=== PATIENT | female | born 1950 | race Hispanic/Latino ===

== ENCOUNTER 2020-06-11 09:53 | Emergency (ER) | payer OTHER ==
[2020-06-11] MEDS ORDERED: CEFTRIAXONE SODIUM 1 GM ONE (13:22)
[2020-06-11] MEDS ORDERED: DEXAMETHASONE SOD PHOSPHATE 4 MG/ML 1ML VIAL ONE (13:22)
== END 2020-06-11 14:04 | disposition home or self-care (01) ==
LOC: EDH 09:53
DX: J02.9 Acute pharyngitis, unspecified (principal); I10 Essential (primary) hypertension; E78.00 Pure hypercholesterolemia, unspecified
CPT/HCPCS: 71045; 87880; 93005; 96372 ×2; 99285; J0696; J1100

== ENCOUNTER 2023-06-10 01:24 | Emergency (ER) | payer OTHER ==
[~2023-06-10] VITALS: Ht 162.6 cm; Wt 78.9 kg
[2023-06-10 01:53] LABS: APPEARANCE,URINE CLEAR (CLEAR); BILIRUBIN,URINE NEGATIVE (NEGATIVE); COLOR,URINE LIGHT-YELLOW (YELLOW); GLUCOSE, URINE (UA) NEGATIVE (NEGATIVE); KETONES,URINE NEGATIVE (NEGATIVE); LEUKOCYTE ESTERASE ,URINE 250 Leu/uL (NEGATIVE); NITRATE,URINE 2+ (NEGATIVE); OCCULT BLOOD,URINE SMALL (NEGATIVE); PH,URINE 6.5 (5.0-8.0); PROTEIN,URINE NEGATIVE (NEGATIVE); UROBILINOGEN,URINE 0.2 mg/dL (0.2-1.0)
[2023-06-10 01:54] LABS: ADD UA MICROSCOPIC YES
[2023-06-10 01:59] LABS: BACTERIA,URINE RARE /HPF (None Seen); SQUAMOUS EPITHELIAL CELL,UR RARE /HPF (0-2); UNCLASSIFIED CRYSTAL 4 /HPF (None Seen)
[2023-06-10] MEDS: 0.9%NACL 1000ML 1,000 ML IV ONE (02:26)
[2023-06-10] MEDS: MORPHINE 2 MG SYG IVP ONE (02:26)
[2023-06-10 02:31] LABS: BASOPHILS # (AUTO) 0.01 K/uL (0.00-0.20); BASOPHILS % (AUTO) 0.2 % (0.0-5.0); EOSINOPHILS % (AUTO) 2.1 % (0.0-8.0); HEMATOCRIT 29.6 % (36-48); IMMATURE GRANULOCYTE ABSOLUTE 0.01 K/uL (0-1); LYMPHOCYTES # (AUTO) 1.7 K/uL (1.0-4.8); LYMPHOCYTES % (AUTO) 35.1 % (21.0-51.0); MEAN CORPUSCULAR HEMOGLOBIN 30.9 pg (27.0-33.0); MEAN CORPUSCULAR HGB CONC 34.8 g/dL (32.0-36.0); MEAN CORPUSCULAR VOLUME 88.9 fL (79-99); MONOCYTES # (AUTO) 0.5 K/uL (0.1-1.0); MONOCYTES % (AUTO) 10.5 % (3.0-13.0); NEUTROPHILS # (AUTO) 2.5 K/uL (1.8-7.7); NEUTROPHILS % (AUTO) 51.9 % (40.0-77.0); PLATELET COUNT (AUTO) 249 K/uL (130-400); RED BLOOD CELL COUNT(AUTO) 3.33 MIL/uL (4.00-5.50); RED CELL DISTRIBUTION WIDTH 12.8 % (11.0-15.5); WHITE BLOOD COUNT (AUTO) 4.9 K/uL (4.8-10.8)
[2023-06-10 02:58] LABS: CREATININE 0.6 mg/dL (0.5-1.5); POTASSIUM 3.5 mmol/L (3.5-5.1)
[2023-06-10 03:02] LABS: ALBUMIN 3.7 g/dL (3.5-5.0); BILIRUBIN,TOTAL 0.4 mg/dL (0.2-1.0); TOTAL PROTEIN, SERUM 6.9 g/dL (6.0-8.3)
[2023-06-10] MEDS ORDERED: IBUP-1493 PO (05:18)
[2023-06-10] MEDS ORDERED: CEFU500T67 PO (05:18)
[2023-06-10] MEDS: CEFTRIAXONE 2GM VIAL IVPB ONE (07:41)
[2023-06-10 07:42] VITALS: BP 133/82; PULSE 68; RESP 14; O2SAT 98
[2023-06-10] MEDS: CEFTRIAXONE 2GM VIAL ONE (07:42)
== END 2023-06-10 08:30 | disposition home or self-care (01) ==
LOC: EDH 01:24
DX: N39.0 Urinary tract infection, site not specified (principal); R10.31 Right lower quadrant pain; E78.00 Pure hypercholesterolemia, unspecified; I10 Essential (primary) hypertension
CPT/HCPCS: 99285; 74177; 96361; 96365; 76705; 96375; 82150; 80053; 83690; 85025; 87088; 81001; 36415; J2270; J7030; J0696

== ENCOUNTER 2023-06-29 00:56 | Emergency (ER) | payer OTHER ==
[~2023-06-29] VITALS: Ht 154.9 cm; Wt 77.1 kg
[~2023-06-29 00:56] MED LIST: CEFU500T67 PO; IBUP-1493 PO
[2023-06-29 00:57] VITALS: BP 138/84; PULSE 74; RESP 20
[2023-06-29 01:27] LABS: APPEARANCE,URINE CLEAR (CLEAR); BILIRUBIN,URINE NEGATIVE (NEGATIVE); COLOR,URINE COLORLESS (YELLOW); GLUCOSE, URINE (UA) NEGATIVE (NEGATIVE); KETONES,URINE NEGATIVE (NEGATIVE); LEUKOCYTE ESTERASE ,URINE 500 Leu/uL (NEGATIVE); NITRATE,URINE NEGATIVE (NEGATIVE); PH,URINE 6.5 (5.0-8.0); PROTEIN,URINE NEGATIVE (NEGATIVE); UROBILINOGEN,URINE 0.2 mg/dL (0.2-1.0)
[2023-06-29 01:32] LABS: ADD UA MICROSCOPIC YES
[2023-06-29 01:37] LABS: BACTERIA,URINE RARE /HPF (None Seen); NON-SQUAMOUS EPITHELIAL CELL <1 /HPF (0-2); SQUAMOUS EPITHELIAL CELL,UR RARE /HPF (0-2)
[2023-06-29] MEDS ORDERED: CEPH500C2 PO (02:38)
[2023-06-29] MEDS ORDERED: ACET-66 PO (02:38)
[2023-06-29] MEDS ORDERED: IBUP-1493 PO (02:38)
[2023-06-29] MEDS ORDERED: PHEN-847 PO (02:38)
[2023-06-29] MEDS: FAMOTIDINE 20MG TAB PO ONE (03:19)
[2023-06-29] MEDS: KETOROLAC 30MG VIAL (30MG/ML) IM ONE (03:19)
[2023-06-29] MEDS: PHENAZOPYRIDINE HCL 200 MG TABLET PO ONE (03:19)
[2023-06-29] MEDS: CEFTRIAXONE 1G VIAL IM ONE (03:19)
[2023-07-03] MEDS ORDERED: AMIT10TA7 PO (20:46)
== END 2023-06-29 03:26 | disposition home or self-care (01) ==
LOC: EDH 00:56
DX: N39.0 Urinary tract infection, site not specified (principal); I10 Essential (primary) hypertension; M19.90 Unspecified osteoarthritis, unspecified site
CPT/HCPCS: 99284; 87088; 81001; 96372 ×2; J0696; J1885

== ENCOUNTER 2023-06-30 09:47 | Emergency (ER) | payer OTHER ==
[~2023-06-30] VITALS: Ht 154.9 cm; Wt 77.1 kg
[~2023-06-30 09:47] MED LIST changes: +ACET-66 PO; +CEPH500C2 PO; +PHEN-847 PO
[2023-06-30 10:30] LABS: BASOPHILS # (AUTO) 0.02 K/uL (0.00-0.20); BASOPHILS % (AUTO) 0.5 % (0.0-5.0); EOSINOPHILS # (AUTO) 0.02 K/uL (0.00-0.70); EOSINOPHILS % (AUTO) 0.5 % (0.0-8.0); HEMATOCRIT 32.9 % (36-48); IMMATURE GRANULOCYTE ABSOLUTE 0.01 K/uL (0-1); LYMPHOCYTES % (AUTO) 23.9 % (21.0-51.0); MEAN CORPUSCULAR HEMOGLOBIN 31.3 pg (27.0-33.0); MEAN CORPUSCULAR HGB CONC 34.7 g/dL (32.0-36.0); MEAN CORPUSCULAR VOLUME 90.4 fL (79-99); MONOCYTES # (AUTO) 0.3 K/uL (0.1-1.0); MONOCYTES % (AUTO) 7.5 % (3.0-13.0); NEUTROPHILS # (AUTO) 2.8 K/uL (1.8-7.7); NEUTROPHILS % (AUTO) 67.4 % (40.0-77.0); PLATELET COUNT (AUTO) 304 K/uL (130-400); RED BLOOD CELL COUNT(AUTO) 3.64 MIL/uL (4.00-5.50); RED CELL DISTRIBUTION WIDTH 12.4 % (11.0-15.5); WHITE BLOOD COUNT (AUTO) 4.2 K/uL (4.8-10.8)
[2023-06-30 10:38] LABS: CREATININE 0.5 mg/dL (0.5-1.5); POTASSIUM 3.7 mmol/L (3.5-5.1)
[2023-06-30 10:43] LABS: ALBUMIN 4.1 g/dL (3.5-5.0); BILIRUBIN,TOTAL 0.5 mg/dL (0.2-1.0); TOTAL PROTEIN, SERUM 7.8 g/dL (6.0-8.3)
[2023-06-30 11:07] LABS: APPEARANCE,URINE CLEAR (CLEAR); BILIRUBIN,URINE NEGATIVE (NEGATIVE); COLOR,URINE DARK-YELLOW (YELLOW); GLUCOSE, URINE (UA) NEGATIVE (NEGATIVE); KETONES,URINE NEGATIVE (NEGATIVE); LEUKOCYTE ESTERASE ,URINE NEGATIVE Leu/uL (NEGATIVE); NITRATE,URINE NEGATIVE (NEGATIVE); OCCULT BLOOD,URINE NEGATIVE (NEGATIVE); PH,URINE 6.5 (5.0-8.0); PROTEIN,URINE NEGATIVE (NEGATIVE); UROBILINOGEN,URINE 0.2 mg/dL (0.2-1.0)
[2023-06-30 11:09] LABS: ADD UA MICROSCOPIC NO
[2023-06-30] MEDS: ACETAMINOPHEN 325 MG TAB PO ONE (11:31)
[2023-06-30 11:59] LABS: APPEARANCE,URINE CLEAR (CLEAR); BILIRUBIN,URINE NEGATIVE (NEGATIVE); COLOR,URINE YELLOW (YELLOW); GLUCOSE, URINE (UA) NEGATIVE (NEGATIVE); KETONES,URINE NEGATIVE (NEGATIVE); LEUKOCYTE ESTERASE ,URINE NEGATIVE Leu/uL (NEGATIVE); NITRATE,URINE NEGATIVE (NEGATIVE); OCCULT BLOOD,URINE NEGATIVE (NEGATIVE); PROTEIN,URINE NEGATIVE (NEGATIVE); UROBILINOGEN,URINE 0.2 mg/dL (0.2-1.0)
[2023-06-30 12:00] LABS: ADD UA MICROSCOPIC NO
[2023-06-30] MEDS ORDERED: ONDANSETRON 4MG INJ IVP PRN (13:30)
[2023-06-30] MEDS ORDERED: ACETAMINOPHEN WITH CODEINE 1 TAB TAB PO PRN (13:30)
[2023-06-30] MEDS: ACETAMINOPHEN WITH CODEINE 1 TAB TAB PO PRN (13:38)
[2023-06-30] MEDS: 0.9%NACL 1000ML 1,000 ML IV ONE (13:38)
[2023-06-30 15:42] VITALS: BP 125/70; PULSE 79; RESP 18; O2SAT 98
[2023-07-03] MEDS ORDERED: AMIT10TA7 PO (20:46)
== END 2023-06-30 15:44 | disposition home or self-care (01) ==
LOC: EDH 09:47
DX: E87.1 Hypo-osmolality and hyponatremia (principal); M19.90 Unspecified osteoarthritis, unspecified site; E78.00 Pure hypercholesterolemia, unspecified; I10 Essential (primary) hypertension
CPT/HCPCS: 99285; 96360; 96361; 80053; 85025; 81003; 36415; J7030

== ENCOUNTER 2023-07-28 22:38 | Observation (INO) | payer OTHER ==
[~2023-07-28 22:38] MED LIST changes: +AMIT10TA7 PO
[2023-07-28 23:18] LABS: BASOPHILS # (AUTO) 0.01 K/uL (0.00-0.20); BASOPHILS % (AUTO) 0.2 % (0.0-5.0); EOSINOPHILS # (AUTO) 0.03 K/uL (0.00-0.70); EOSINOPHILS % (AUTO) 0.6 % (0.0-8.0); IMMATURE GRANULOCYTE ABSOLUTE 0.01 K/uL (0-1); LYMPHOCYTES # (AUTO) 1.5 K/uL (1.0-4.8); LYMPHOCYTES % (AUTO) 28.1 % (21.0-51.0); MEAN CORPUSCULAR HGB CONC 36.3 g/dL (32.0-36.0); MONOCYTES # (AUTO) 0.5 K/uL (0.1-1.0); MONOCYTES % (AUTO) 8.9 % (3.0-13.0); NEUTROPHILS # (AUTO) 3.3 K/uL (1.8-7.7); PLATELET COUNT (AUTO) 317 K/uL (130-400); RED BLOOD CELL COUNT(AUTO) 3.41 MIL/uL (4.00-5.50); WHITE BLOOD COUNT (AUTO) 5.3 K/uL (4.8-10.8)
[2023-07-28] MEDS: ONDANSETRON 4MG INJ IVP ONE (23:22)
[2023-07-28] MEDS: 0.9%NACL 1000ML 1,000 ML IV ONE (23:22)
[2023-07-28 23:31] LABS: BILIRUBIN,TOTAL 0.8 mg/dL (0.2-1.0); CREATININE 0.4 mg/dL (0.5-1.0); POTASSIUM 3.8 mmol/L (3.5-5.1); TOTAL PROTEIN, SERUM 7.3 g/dL (6.0-8.3)
[2023-07-29] MEDS ORDERED: IOHEXOL 350 MG/ML 100ML INFUS..BTL IV ONE (00:13)
[2023-07-29] MEDS: 0.9%NACL 1000ML 1,000 ML IV ONE ×2 (00:22→02:20)
[2023-07-29 00:28] LABS: APPEARANCE,URINE CLEAR (CLEAR); BILIRUBIN,URINE NEGATIVE (NEGATIVE); COLOR,URINE COLORLESS (YELLOW); GLUCOSE, URINE (UA) NEGATIVE (NEGATIVE); KETONES,URINE NEGATIVE (NEGATIVE); LEUKOCYTE ESTERASE ,URINE 25 Leu/uL (NEGATIVE); NITRATE,URINE NEGATIVE (NEGATIVE); PH,URINE 6.5 (5.0-8.0); PROTEIN,URINE NEGATIVE (NEGATIVE); UROBILINOGEN,URINE 0.2 mg/dL (0.2-1.0)
[2023-07-29 00:38] LABS: ADD UA MICROSCOPIC YES
[2023-07-29 00:39] LABS: BACTERIA,URINE RARE /HPF (None Seen); MUCUS,URINE RARE LPF (None Seen); WBC,URINE 0-1 /HPF (0-1)
[2023-07-29] MEDS ORDERED: ACETAMINOPHEN 325 MG TAB PO PRN (02:00)
[2023-07-29] MEDS: 0.9%NACL 1000ML 1,000 ML IV SCH (02:18)
[2023-07-29] MEDS ORDERED: FLUT1BLS9 IH (08:16)
[2023-07-29] MEDS ORDERED: LOSA25TA41 PO (08:16)
[2023-07-29] MEDS ORDERED: BACL5TAB PO (08:16)
[2023-07-29] MEDS ORDERED: ACET-2079 PO (08:16)
[2023-07-29] MEDS ORDERED: GABA300C PO (08:16)
[2023-07-29] MEDS ORDERED: LIDO1ADH71 TP (08:16)
[2023-07-29] MEDS ORDERED: FERR-72 PO (08:16)
[2023-07-29] MEDS ORDERED: ALBU2.5V2 IH (08:18)
[2023-07-29] MEDS ORDERED: ALBU6.7H14 IH (08:18)
[2023-07-29] MEDS ORDERED: LIDOCAINE 4% ADH..PATCH TP PRN (11:30)
[2023-07-29] MEDS ORDERED: ALBUTEROL 0.083% 2.5 MG/3 ML INH IH PRN (11:30)
[2023-07-29 12:42] LABS: CREATININE 0.5 mg/dL (0.5-1.0); POTASSIUM 3.8 mmol/L (3.5-5.1)
[2023-07-29] MEDS: ACETAMINOPHEN WITH CODEINE 1 TAB TAB PO PRN (12:53)
[2023-07-29] MEDS: GABAPENTIN 300 MG CAPSULE PO SCH (14:00)
[2023-07-29] MEDS ORDERED: ONDA-104 PO (14:59)
[2023-07-29] MEDS ORDERED: IBUP-2077 PO (14:59)
[2023-07-29 15:01] VITALS: O2SAT 99
[2023-07-29 15:10] VITALS: PULSE 82; RESP 20; O2SAT 99
[2023-07-29 17:06] VITALS: BP 124/76; PULSE 90; RESP 15
[2023-07-29] MEDS: ONDANSETRON 4MG INJ IVP PRN (17:55)
[2023-07-29 18:00] VITALS: BP 133/84; PULSE 94; RESP 15
[2023-07-29] MEDS ORDERED: LOSARTAN 25 MG TABLET PO SCH (21:00)
[2023-07-30] MEDS ORDERED: FERROUS SULFATE 325 MG TABLET.DR PO SCH (09:00)
[2023-07-30] MEDS ORDERED: NON-FORMULARY MEDICATION 1 EACH (Ferrous Sulfate 325 MG) PO SCH (09:00)
== END 2023-07-29 19:30 | disposition home or self-care (01) ==
LOC: EDH 22:38 → EDHIP 07-29 01:48 → INTOOBSV 07-29 01:48 → 2CV 07-29 14:07 → 2BH 07-29 14:55
PROVIDERS: ADMIT Internal Medicine; ATTEND Internal Medicine
DX: E86.0 Dehydration (principal); E87.1 Hypo-osmolality and hyponatremia; I10 Essential (primary) hypertension; E78.5 Hyperlipidemia, unspecified; K57.30 Diverticulosis of large intestine without perforation or abscess without bleeding; J30.9 Allergic rhinitis, unspecified; M48.061 Spinal stenosis, lumbar region without neurogenic claudication; M47.816 Spondylosis without myelopathy or radiculopathy, lumbar region; M79.7 Fibromyalgia; M81.0 Age-related osteoporosis without current pathological fracture; M47.812 Spondylosis without myelopathy or radiculopathy, cervical region; E78.00 Pure hypercholesterolemia, unspecified; J44.9 Chronic obstructive pulmonary disease, unspecified; K21.9 Gastro-esophageal reflux disease without esophagitis; M41.9 Scoliosis, unspecified; N39.0 Urinary tract infection, site not specified; F11.20 Opioid dependence, uncomplicated; F32.1 Major depressive disorder, single episode, moderate; F43.20 Adjustment disorder, unspecified; Z79.899 Other long term (current) drug therapy
CPT/HCPCS: 99285; 80053; 83690; 85025; 74177; 96374; 96361 ×2; 96376; 80048; 87088; 81001; 36415 ×2; J7030 ×3; J2405 ×2; G0378 ×8; Q9967

== ENCOUNTER 2023-09-03 19:49 | Emergency (ER) | payer OTHER ==
[~2023-09-03] VITALS: Ht 162.6 cm; Wt 72.6 kg
[~2023-09-03 19:49] MED LIST changes: +ACET-2079 PO; -ACET-66 PO; +ALBU2.5V2 IH; +ALBU6.7H14 IH; -AMIT10TA7 PO; +BACL5TAB PO; -CEFU500T67 PO; -CEPH500C2 PO; +FERR-72 PO; +FLUT1BLS9 IH; +GABA300C PO; -IBUP-1493 PO; +LIDO1ADH71 TP; +LOSA25TA41 PO; -PHEN-847 PO
[2023-09-03 19:50] VITALS: BP 134/96; PULSE 72; RESP 20
[2023-09-03 20:25] LABS: APPEARANCE,URINE CLEAR (CLEAR); BILIRUBIN,URINE NEGATIVE (NEGATIVE); COLOR,URINE COLORLESS (YELLOW); GLUCOSE, URINE (UA) NEGATIVE (NEGATIVE); KETONES,URINE NEGATIVE (NEGATIVE); LEUKOCYTE ESTERASE ,URINE NEGATIVE Leu/uL (NEGATIVE); NITRATE,URINE NEGATIVE (NEGATIVE); PROTEIN,URINE NEGATIVE (NEGATIVE); UROBILINOGEN,URINE 0.2 mg/dL (0.2-1.0)
[2023-09-03 20:48] LABS: ADD UA MICROSCOPIC YES
[2023-09-03 20:53] LABS: BACTERIA,URINE RARE /HPF (None Seen); MUCUS,URINE RARE LPF (None Seen); SQUAMOUS EPITHELIAL CELL,UR RARE /HPF (0-2); WBC,URINE 0-1 /HPF (0-1)
[2023-09-03] MEDS ORDERED: FLUC100T12 PO (21:27)
[2023-09-03] MEDS ORDERED: PHENAZOPYRIDINE HCL 200 MG TABLET PO ONE (21:30)
== END 2023-09-03 21:35 | disposition home or self-care (01) ==
LOC: EDH 19:49
DX: B37.31 Acute candidiasis of vulva and vagina (principal); E78.00 Pure hypercholesterolemia, unspecified; I10 Essential (primary) hypertension; Z79.51 Long term (current) use of inhaled steroids; Z79.899 Other long term (current) drug therapy
CPT/HCPCS: 81001; 87088

== ENCOUNTER 2023-09-20 18:37 | Emergency (ER) | payer OTHER ==
[~2023-09-20] VITALS: Ht 165.1 cm; Wt 92.5 kg
[~2023-09-20 18:37] MED LIST changes: +FLUC100T12 PO
[2023-09-20 19:04] LABS: APPEARANCE,URINE CLEAR (CLEAR); BILIRUBIN,URINE NEGATIVE (NEGATIVE); COLOR,URINE COLORLESS (YELLOW); GLUCOSE, URINE (UA) NEGATIVE (NEGATIVE); KETONES,URINE NEGATIVE (NEGATIVE); LEUKOCYTE ESTERASE ,URINE NEGATIVE Leu/uL (NEGATIVE); NITRATE,URINE NEGATIVE (NEGATIVE); PROTEIN,URINE NEGATIVE (NEGATIVE); UROBILINOGEN,URINE 0.2 mg/dL (0.2-1.0)
[2023-09-20 19:08] LABS: ADD UA MICROSCOPIC YES
[2023-09-20 19:18] LABS: BACTERIA,URINE RARE /HPF (None Seen); RBC,URINE 0-1 /HPF (0-1); SQUAMOUS EPITHELIAL CELL,UR RARE /HPF (0-2); WBC,URINE 0-1 /HPF (0-1)
[2023-09-20 20:13] LABS: BASOPHILS # (AUTO) 0.02 K/uL (0.00-0.20); BASOPHILS % (AUTO) 0.3 % (0.0-5.0); EOSINOPHILS # (AUTO) 0.11 K/uL (0.00-0.70); EOSINOPHILS % (AUTO) 1.8 % (0.0-8.0); HEMATOCRIT 33.3 % (36-48); IMMATURE GRANULOCYTE ABSOLUTE 0.02 K/uL (0-1); MEAN CORPUSCULAR HEMOGLOBIN 31.1 pg (27.0-33.0); MEAN CORPUSCULAR HGB CONC 33.9 g/dL (32.0-36.0); MEAN CORPUSCULAR VOLUME 91.7 fL (79-99); MONOCYTES # (AUTO) 0.5 K/uL (0.1-1.0); NEUTROPHILS # (AUTO) 3.4 K/uL (1.8-7.7); NEUTROPHILS % (AUTO) 55.6 % (40.0-77.0); PLATELET COUNT (AUTO) 323 K/uL (130-400); RED BLOOD CELL COUNT(AUTO) 3.63 MIL/uL (4.00-5.50); RED CELL DISTRIBUTION WIDTH 13.3 % (11.0-15.5)
[2023-09-20 20:30] LABS: CREATININE 0.5 mg/dL (0.5-1.0)
[2023-09-20] MEDS: TRIAMCINOLONE ACETONIDE 40 MG/ML 1ML VIAL IM ONE (21:50)
[2023-09-20] MEDS: ORPHENADRINE CITRATE 30 MG/ML ML IM ONE (21:51)
[2023-09-21 00:18] VITALS: BP 107/62; PULSE 71; RESP 18; O2SAT 99
[2023-09-21] MEDS: HYDROCODONE/ACETAMINOPHEN 5/325 MG TAB PO ONE (00:29)
== END 2023-09-21 00:40 | disposition home or self-care (01) ==
LOC: EEVIPCON 18:37 → EDH 18:37
DX: G89.29 Other chronic pain (principal); M54.9 Dorsalgia, unspecified; R30.0 Dysuria; I10 Essential (primary) hypertension; E78.00 Pure hypercholesterolemia, unspecified; Z79.899 Other long term (current) drug therapy; Z98.890 Other specified postprocedural states; Z88.8 Allergy status to other drugs, medicaments and biological substances
CPT/HCPCS: 99285; 74176; 80048; 85025; 81001; 36415; 96372 ×2; J3301; J2360

== ENCOUNTER 2023-11-20 23:53 | Emergency (ER) | payer OTHER ==
[~2023-11-20] VITALS: Ht 162.6 cm; Wt 72.6 kg
[2023-11-21 01:06] LABS: BASOPHILS # (AUTO) 0.03 K/uL (0.00-0.20); BASOPHILS % (AUTO) 0.5 % (0.0-5.0); EOSINOPHILS # (AUTO) 0.12 K/uL (0.00-0.70); EOSINOPHILS % (AUTO) 2.2 % (0.0-8.0); HEMATOCRIT 31.3 % (36-48); LYMPHOCYTES # (AUTO) 1.5 K/uL (1.0-4.8); LYMPHOCYTES % (AUTO) 27.4 % (21.0-51.0); MEAN CORPUSCULAR HEMOGLOBIN 31.6 pg (27.0-33.0); MEAN CORPUSCULAR HGB CONC 35.8 g/dL (32.0-36.0); MEAN CORPUSCULAR VOLUME 88.4 fL (79-99); MONOCYTES # (AUTO) 0.6 K/uL (0.1-1.0); MONOCYTES % (AUTO) 10.6 % (3.0-13.0); NEUTROPHILS # (AUTO) 3.2 K/uL (1.8-7.7); NEUTROPHILS % (AUTO) 59.3 % (40.0-77.0); PLATELET COUNT (AUTO) 276 K/uL (130-400); RED BLOOD CELL COUNT(AUTO) 3.54 MIL/uL (4.00-5.50); RED CELL DISTRIBUTION WIDTH 12.1 % (11.0-15.5); WHITE BLOOD COUNT (AUTO) 5.5 K/uL (4.8-10.8)
[2023-11-21 01:17] LABS: CREATININE 0.5 mg/dL (0.5-1.0); POTASSIUM 3.7 mmol/L (3.5-5.1)
[2023-11-21 01:25] LABS: ALBUMIN 3.8 g/dL (3.5-5.0); BILIRUBIN,TOTAL 0.7 mg/dL (0.2-1.0); TOTAL PROTEIN, SERUM 7.1 g/dL (6.0-8.3)
[2023-11-21 01:33] LABS: APPEARANCE,URINE CLEAR (CLEAR); BILIRUBIN,URINE NEGATIVE (NEGATIVE); COLOR,URINE COLORLESS (YELLOW); GLUCOSE, URINE (UA) NEGATIVE (NEGATIVE); KETONES,URINE NEGATIVE (NEGATIVE); LEUKOCYTE ESTERASE ,URINE NEGATIVE Leu/uL (NEGATIVE); NITRATE,URINE NEGATIVE (NEGATIVE); PROTEIN,URINE NEGATIVE (NEGATIVE); UROBILINOGEN,URINE 0.2 mg/dL (0.2-1.0)
[2023-11-21 01:34] LABS: AMPHET/METH SCREEN,URINE NEGATIVE (NEGATIVE); BARBITURATE SCREEN, URINE NEGATIVE (NEGATIVE); BENZODIAZEPINES SCREEN,URINE NEGATIVE (NEGATIVE); CANNABINOID SCREEN,URINE NEGATIVE (NEGATIVE); COCAINE SCREEN,URINE NEGATIVE (NEGATIVE); OPIATE SCREEN,URINE NEGATIVE (NEGATIVE); PHENCYCLIDINE SCREEN,URINE NEGATIVE (NEGATIVE)
[2023-11-21 01:45] LABS: ADD UA MICROSCOPIC YES
[2023-11-21 01:49] LABS: B-TYPE NATRIURETIC PEPTIDE 34 pg/mL (0-100)
[2023-11-21 01:52] LABS: BACTERIA,URINE RARE /HPF (None Seen); SQUAMOUS EPITHELIAL CELL,UR RARE /HPF (0-2); WBC,URINE 0-1 /HPF (0-1)
[2023-11-21] MEDS: LACTATED RINGERS 1000ML 546 ML IV ONE (02:51)
[2023-11-21] MEDS: KETOROLAC 15MG/ML VIAL (15MG/ML) IV ONE (02:51)
[2023-11-21 04:49] VITALS: BP 131/84; PULSE 65; RESP 16; O2SAT 98
== END 2023-11-21 05:09 | disposition home or self-care (01) ==
LOC: EDH 23:53
DX: G89.29 Other chronic pain (principal); M54.9 Dorsalgia, unspecified; E78.00 Pure hypercholesterolemia, unspecified; I10 Essential (primary) hypertension; M41.9 Scoliosis, unspecified; M81.0 Age-related osteoporosis without current pathological fracture; Z79.899 Other long term (current) drug therapy; Z87.440 Personal history of urinary (tract) infections; Z98.890 Other specified postprocedural states
CPT/HCPCS: 99285; 82550; 84484; 80053; 83880; 80305; 85025; 81001; 36415; 96374; 71045; 96361; J7120; J1885